=== PATIENT | female | born 1945 | race Two or more races ===

== ENCOUNTER 2017-09-22 08:17 | Outpatient (CLI) | payer OTHER | END 2017-09-22 08:20 | disposition home or self-care (01) | LOC: SONOGRAMA 08:17 → MAMO-SONO 08:45 | DX: N64.4 Mastodynia (principal) ==

== ENCOUNTER → 2018-10-14 | Outpatient (CLI) | payer OTHER | END | disposition home or self-care (01) | LOC: NUCLEAR 13:30 | DX: M89.8X0 Other specified disorders of bone, multiple sites (principal); M81.0 Age-related osteoporosis without current pathological fracture ==

== ENCOUNTER 2018-10-17 14:19 | Outpatient (CLI) | payer OTHER | END 2018-10-17 14:31 | disposition home or self-care (01) | LOC: MAMO-SONO 14:19 | DX: N64.4 Mastodynia (principal) ==

== ENCOUNTER 2019-10-31 14:34 | Outpatient (CLI) | payer OTHER | END 2019-10-31 14:43 | disposition home or self-care (01) | LOC: MAMO-SONO 14:34 | PROVIDERS: ATTEND Specialist | DX: Z12.31 Encounter for screening mammogram for malignant neoplasm of breast (principal); N64.4 Mastodynia ==

== ENCOUNTER 2021-03-18 10:36 | Outpatient (CLI) | payer OTHER | END 2021-03-18 10:46 | disposition home or self-care (01) | LOC: RAD 10:36 → NUCLEAR 11:00 | DX: I10 Essential (primary) hypertension (principal); M81.0 Age-related osteoporosis without current pathological fracture; R92.0 Mammographic microcalcification found on diagnostic imaging of breast; Z12.31 Encounter for screening mammogram for malignant neoplasm of breast ==

== ENCOUNTER → 2021-03-18 13:34 | Outpatient (CLI) | payer OTHER | END | disposition home or self-care (01) | LOC: MAMO-SONO 10:15 → NUCLEAR 13:34 | PROVIDERS: ATTEND General Practice | DX: M81.0 Age-related osteoporosis without current pathological fracture (principal) ==

== ENCOUNTER 2022-03-24 09:36 | Outpatient (CLI) | payer OTHER | END 2022-03-24 09:42 | disposition home or self-care (01) | LOC: MAMO-SONO 09:36 | PROVIDERS: ATTEND General Practice | DX: Z12.31 Encounter for screening mammogram for malignant neoplasm of breast (principal); R92.0 Mammographic microcalcification found on diagnostic imaging of breast ==

== ENCOUNTER 2023-03-30 09:42 | Outpatient (CLI) | payer OTHER | END 2023-03-30 09:48 | disposition home or self-care (01) | LOC: MAMO-SONO 09:42 | PROVIDERS: ATTEND General Practice | DX: Z12.31 Encounter for screening mammogram for malignant neoplasm of breast (principal); R92.0 Mammographic microcalcification found on diagnostic imaging of breast ==

== ENCOUNTER 2023-03-30 10:40 | Outpatient (CLI) | payer OTHER | END 2023-03-30 10:41 | disposition home or self-care (01) | LOC: NUCLEAR 10:40 | PROVIDERS: ATTEND General Practice | DX: M81.0 Age-related osteoporosis without current pathological fracture (principal) ==

== ENCOUNTER 2024-04-03 07:41 | Outpatient (CLI) | payer OTHER | END 2024-04-03 07:43 | disposition home or self-care (01) | LOC: MAMO-SONO 07:41 | PROVIDERS: ATTEND General Practice | DX: Z12.31 Encounter for screening mammogram for malignant neoplasm of breast (principal); R92.0 Mammographic microcalcification found on diagnostic imaging of breast ==

== ENCOUNTER 2025-04-09 10:57 | Outpatient (CLI) | payer OTHER | END 2025-04-09 10:59 | disposition home or self-care (01) | LOC: MAMO-SONO 10:57 | PROVIDERS: ATTEND General Practice | DX: M18.0 Bilateral primary osteoarthritis of first carpometacarpal joints (principal); R92.0 Mammographic microcalcification found on diagnostic imaging of breast; Z12.31 Encounter for screening mammogram for malignant neoplasm of breast ==